=== PATIENT | male | born 1960 | race Caucasian/White ===

== ENCOUNTER → 2018-09-30 | Outpatient (CLI) | payer MEDICARE ==
[2018-09-30 12:12] LABS: Source, Urine Clean Catch
[2018-09-30 15:02] LABS: Bilirubin, Urine Neg (Neg); Blood, Urine Neg (Neg); Glucose Qualitative, Urine Neg (Neg); Ketones, Urine Neg (Neg); Leukocyte Esterase, Urine Neg (Neg); Nitrite, Urine Neg (Neg); Protein, Urine Neg (Neg); Urobilinogen, Urine NORM (Normal)
[2018-09-30 15:18] LABS: Appearance, Urine Clear (Clear); Color, Urine Yellow (P-Yellow)
== END ==
LOC: LAB 12:09 → LAB SHORT 12:09
PROVIDERS: Nurse Practitioner Family
DX: N34.2 Other urethritis (principal); R36.9 Urethral discharge, unspecified
CPT/HCPCS: 81003

== ENCOUNTER → 2019-03-05 | Outpatient (CLI) | payer MEDICARE | END | disposition home or self-care (01) | LOC: LAB SHORT 19:23 → LAB 19:23 | DX: N34.2 Other urethritis (principal); R36.9 Urethral discharge, unspecified | CPT/HCPCS: 87086 ==

== ENCOUNTER 2019-05-11 08:28 | Day surgery (SDC) | payer MEDICARE ==
[~2019-05-11] VITALS: Ht 175.3 cm; Wt 80.0 kg
[2019-05-11] MEDS ORDERED: DRIZALMA SPRINK60 MG (09:21)
[2019-05-11] MEDS ORDERED: SILDENAFIL CIT100 MG (09:21)
[2019-05-11] MEDS ORDERED: Cymbalta20 MG (09:22)
[2019-05-11] MEDS ORDERED: OMEPRAZOLE20 MG (09:22)
== END 2019-05-11 11:01 | disposition home or self-care (01) ==
LOC: ORSCSDS 08:28
PROVIDERS: Internal Medicine Gastroenterology
PROC: 0DBH8ZX Excision of Cecum, Via Natural or Artificial Opening Endoscopic, Diagnostic (ICD-10-PCS; principal; 2019-05-11 10:00)
PROC: 0DBN8ZX Excision of Sigmoid Colon, Via Natural or Artificial Opening Endoscopic, Diagnostic (ICD-10-PCS; principal; 2019-05-11 10:00)
PROC: 0DBK8ZX Excision of Ascending Colon, Via Natural or Artificial Opening Endoscopic, Diagnostic (ICD-10-PCS; principal; 2019-05-11 10:00)
DX: Z12.11 Encounter for screening for malignant neoplasm of colon (principal); D12.0 Benign neoplasm of cecum; D12.2 Benign neoplasm of ascending colon; D12.5 Benign neoplasm of sigmoid colon; Z79.899 Other long term (current) drug therapy
CPT/HCPCS: 88305; J2704; J7120

== ENCOUNTER → 2020-03-13 | Outpatient (CLI) | payer MEDICARE ==
[~2020-03-13] MED LIST: Cymbalta20 MG; DRIZALMA SPRINK60 MG; OMEPRAZOLE20 MG; SILDENAFIL CIT100 MG
== END | disposition home or self-care (01) ==
LOC: LAB 17:59 → LAB SHORT 17:59
DX: L02.91 Cutaneous abscess, unspecified (principal)
CPT/HCPCS: 87070; 87075; 87077; 87147; 87186; 87205

== ENCOUNTER → 2020-06-07 | Outpatient (CLI) | payer MEDICARE ==
[~2020-06-07] MED LIST changes: +BROMSITE5 ML LEFTEYE; +ERYT1OIN LEFTEYE
== END | disposition home or self-care (01) ==
LOC: LAB 14:40 → LAB SHORT 14:40
DX: L02.414 Cutaneous abscess of left upper limb (principal)
CPT/HCPCS: 87070; 87075; 87077; 87147; 87186; 87205

== ENCOUNTER 2020-11-06 21:40 | Emergency (ER) | payer MEDICARE ==
[~2020-11-06] VITALS: Ht 175.3 cm; Wt 88.5 kg
[~2020-11-06 21:40] MED LIST changes: -BROMSITE5 ML LEFTEYE; -ERYT1OIN LEFTEYE
[2020-11-07] MEDS ORDERED: BROMSITE5 ML LEFTEYE (00:33)
[2020-11-07] MEDS ORDERED: ERYT1OIN LEFTEYE (00:33)
== END 2020-11-07 00:48 | disposition home or self-care (01) ==
LOC: ER 21:40
DX: S05.02XA Injury of conjunctiva and corneal abrasion without foreign body, left eye, initial encounter (principal); Z91.09 Other allergy status, other than to drugs and biological substances; W45.8XXA Other foreign body or object entering through skin, initial encounter
CPT/HCPCS: 99283; A9270

== ENCOUNTER → 2020-11-30 | Outpatient (CLI) | payer MEDICARE ==
[~2020-11-30] MED LIST changes: +BROMSITE5 ML LEFTEYE; +ERYT1OIN LEFTEYE
== END | disposition home or self-care (01) ==
LOC: LAB 11:11 → LAB SHORT 11:11
DX: L57.0 Actinic keratosis (principal)
CPT/HCPCS: 88305

== ENCOUNTER 2021-03-13 17:18 | Emergency (ER) | payer MEDICARE ==
[~2021-03-13] VITALS: Ht 175.3 cm; Wt 90.7 kg
[2021-03-13 17:57] LABS: BASOPHILS ABSOLUTE AUTO 0.05 K/mm3 (0.00-0.23); BASOPHILS PERCENT AUTO 1 % (0-2); EOSINOPHILS ABSOLUTE AUTO 0.27 K/mm3 (0.00-0.68); EOSINOPHILS PERCENT AUTO 3 % (0-6); Hematocrit 47.2 % (37.0-53.0); Hemoglobin 16.2 g/dL (13.5-17.5); IMMATURE GRAN ABSOLUTE AUTO 0.07 K/mm3 (0.00-0.10); IMMATURE GRAN PERCENT AUTO 1 % (0-1); LYMPHOCYTES PERCENT AUTO 23 % (21-46); MONOCYTES ABSOLUTE AUTO 0.78 K/mm3 (0.16-1.47); MONOCYTES PERCENT AUTO 8 % (4-13); Mean Corpuscular HGB 32.9 pg (26.0-34.0); Mean Corpuscular HGB Conc 34.3 g/dL (31.5-36.5); Mean Corpuscular Volume 96 fL (80-100); Mean Platelet Volume 10.1 fL (9.1-12.4); NEUTROPHILS ABSOLUTE AUTO 6.07 K/mm3 (1.96-9.15); NEUTROPHILS PERCENT AUTO 64 % (41-73); Platelet Count 286 K/mm3 (150-400); RDW Coefficient Variation 12.3 % (11.7-14.2); RDW Standard Deviation 43.7 fL (35.1-46.3); Red Blood Cell Count 4.92 M/mm3 (4.30-5.90); White Blood Cell Count 9.44 K/mm3 (4.00-11.30)
[2021-03-13 18:21] LABS: Albumin, Blood 3.9 g/dL (3.4-5.0); Bilirubin, Total 0.5 mg/dL (0.1-1.0); Bun/Creatinine Ratio 17.6 (12.0-20.0); Calcium, Blood 9.2 mg/dL (8.5-10.1); Creatinine, Blood 1.25 mg/dL (0.60-1.20); Globulin, Blood 3.8 g/dL (2.2-4.0); Potassium, Blood 3.6 mmol/L (3.5-5.5); Total Protein, Blood 7.7 g/dL (6.4-8.2)
[2021-03-13] MEDS ORDERED: HYDROCORTISON28.4 G4 TOP (20:53)
== END 2021-03-13 21:02 | disposition home or self-care (01) ==
LOC: ER 17:18
PROVIDERS: Physician Assistant
DX: L50.8 Other urticaria (principal); Z88.8 Allergy status to other drugs, medicaments and biological substances
CPT/HCPCS: 80053; 85025; 96374; 96375; 99283-25; A9270; J1200; J2930

== ENCOUNTER → 2022-03-26 | Outpatient (CLI) | payer MEDICARE ==
[~2022-03-26] MED LIST changes: +HYDROCORTISON28.4 G4 TOP
== END ==
LOC: LAB SHORT 14:59 → LAB 14:59
DX: C76.41 Malignant neoplasm of right upper limb (principal)
CPT/HCPCS: 88305

== ENCOUNTER 2023-10-23 09:39 | Day surgery (SDC) | payer MEDICARE ==
[2023-10-23] VITALS (13 sets, daily range): BP systolic 102–152; BP diastolic 68–112
[~2023-10-23] VITALS: Ht 175.3 cm; Wt 88.1 kg
[~2023-10-23 09:39] MED LIST changes: +ALLO100 PO; +Lactated Ringer's 1,000 ML IV SCH; +OMEP20ER PO
--- NOTE | 2023-10-23 10:57 | NUR ---
Ambulatory in Day Surgery. History, Chart, Medications and Allergies reviewed before start of procedure. Lungs clear T/O to Auscultation. Patient confirms NPO status and agrees with scheduled surgery. Patient States Post-Procedure ride home has been arranged.
[2023-10-23] MEDS ORDERED: propofoL 20 ML IV ONE (10:59)
[2023-10-23] MEDS ORDERED: Midazolam HCl 1MG / ML 2ML Vial ONE (11:10)
--- NOTE | 2023-10-23 11:11 | NUR ---
10/23/23 Eulogio Be HISTORY, CHART, MEDICATIONS AND ALLERGIES REVIEWED BEFORE START OF PROCEDURE. PATIENT CONFIRMS NPO STATUS AND AGREES WITH SCHEDULED PROCEDURE. 3-LEAD EKG REVIEWED WITH PHYSICIAN PRIOR TO START OF PROCEDURE. MONITOR INTACT WITH CONTINUOUS PULSE OXIMETRY,CAPNOGRAPHY, 3-LEAD EKG, INTERMITTENT BP. SUPPLEMENTAL O2 TO BE TITRATED THROUGHOUT PROCEDURE TO MAINTAIN O2 SATURATION ABOVE 90%. PATIENT DETERMINED TO BE ASA APPROPRIATE FOR PROPOFOL SEDATION PRIOR TO START OF PROCEDURE BY DR. WORKMAN.
--- NOTE | 2023-10-23 11:46 | NUR ---
PT TOLERATING PO FLUIDS AND FOOD WELL. Discharge instructions reviewed with patient. Patient verbalizes understanding. Copy given to patient to take home. Patient States Post-Procedure ride home has been arranged.
--- NOTE | 2023-10-23 12:04 | NUR ---
Patient up to Ambulate independently. Gait steady.
--- NOTE | 2023-10-23 12:05 | NUR ---
Discharged via wheelchair to private car for ride home.
== END 2023-10-23 12:05 | disposition home or self-care (01) ==
LOC: ORSCMMR 09:39 → ORD 10:30 → ORSCMMR 12:05
PROVIDERS: Internal Medicine Gastroenterology
PROC: 0DBN8ZX Excision of Sigmoid Colon, Via Natural or Artificial Opening Endoscopic, Diagnostic (ICD-10-PCS; principal; 2023-10-23 10:30)
DX: Z12.11 Encounter for screening for malignant neoplasm of colon (principal); Z86.010 Personal history of colon polyps; K63.5 Polyp of colon; G47.30 Sleep apnea, unspecified; K21.9 Gastro-esophageal reflux disease without esophagitis; Z79.899 Other long term (current) drug therapy
CPT/HCPCS: 88305; J2250; J2704; J7120

== ENCOUNTER → 2025-03-14 | Outpatient (CLI) | payer MEDICARE ==
[~2025-03-14] MED LIST changes: +ALLEGRA ALLERGY60 MG PO; -Lactated Ringer's 1,000 ML IV SCH; +Prednisone20 MG PO
== END ==
LOC: LAB 16:16 → LAB SHORT 16:16
DX: R30.0 Dysuria (principal)
CPT/HCPCS: 87086